=== PATIENT | male | born 1955 | race Caucasian/White ===

== ENCOUNTER 2017-04-30 14:17 | Emergency (ER) | payer SELFPAY ==
[~2017-04-30] VITALS: Ht 182.9 cm; Wt 90.0 kg
[2017-04-30 14:18] VITALS: BP 142/90; PULSE 106; RESP 20; TEMP 98.1; O2SAT 98
--- NOTE | 2017-04-30 14:25 | PD ---
HPI . Diverticulitis Chief Complaint: GI Complaint Time Seen by Provider: 14:25 Travel History International Travel<30 days: No Contact w/Intl Traveler<30days: No Traveled to known affect area: No History of Present Illness HPI 62-year-old male with hx of HTN and diverticulosis here with complaints of diverticulitis flare. Patient tells me that he was seen at [facility] approximately 8 days ago and told that he had diverticulitis and would require admission, however due to work commitments he was unable to stay. He was discharged home with oral Cipro and Flagyl and tells me he's been taking it ever since, but that he doesn't seem to be getting significantly better. He says that he may have had a little bit of relief, however 4 days ago he decided to start using a stool softener secondary constipation and his abdominal pain returned. He also tells me that he saw some blood when wiping, but admits to hemorrhoids. Today he is complaining of diffuse abdominal pain along the upper quadrant rated as 9/10. He denies any nausea, vomiting, diarrhea or constipation. He does not have a primary care provider or any healthcare provider at this time. [facility] Past Medical History Diverticulitis: Yes Social History Alcohol Use: Yes Tobacco Use: Yes Substance Use: No Allergies-Medications (Allergen,Severity, Reaction): Coded Allergies: No Known Allergies (Unverified , 04/30/17) Reported Meds & Prescriptions Reported Meds & Active Scripts Active Reported Lisinopril 40 Mg Tab 40 Mg PO DAILY Review of Systems General / Constitutional: No: Fever Eyes: No: Visual changes HENT: No: Headaches Cardiovascular: No: Chest Pain or Discomfort Respiratory: No: Shortness of Breath Gastrointestinal: Positive: Abdominal Pain Genitourinary: No: Dysuria Musculoskeletal: No: Pain Skin: No Rash Neurologic: No: Weakness Psychiatric: No: Depression Endocrine: No: Polydipsia Hematologic/Lymphatic: No: Easy Bruising Physical Exam Narrative GENERAL: AAO x 3, no acute distress, Well-nourished, well-developed patient. SKIN: Warm and dry. No visible rashes or bruising. HEAD: Normocephalic and atraumatic. EYES: No scleral icterus. No injection or drainage. EOM intact, PERRLA ENT: No nasal drainage noted. Mucous membranes pink. Airway patent. NECK: Supple, trachea midline. No JVD. CARDIOVASCULAR: Regular rate and rhythm without murmurs, gallops, or rubs. RESPIRATORY: Breath sounds equal bilaterally. No accessory muscle use. No rhonchi or rales. GASTROINTESTINAL: Abdomen soft, mild tenderness to deep palpation, no rebound or guarding, no McBurney's point tenderness or Braden's sign. Normoactive bowel sounds RECTAL: negative guaiac, palpable hemorrhoid internally, no visible bleeding EXTREMITIES: No cyanosis or edema. BACK: Nontender without obvious deformity. No CVA tenderness. NEURO: CN II-12 intact, chemical laboratory scientist strength normal b/l, UE and LE 5/5, no focal deficits PSYCH: AAO x 3, normal affect. Data Data Last Documented VS Vital Signs Date Time Temp Pulse Resp B/P Pulse Ox O2 Delivery O2 Flow Rate FiO2 04/30/17 17:52 91 18 134/85 99 04/30/17 14:18 98.1 Room Air Orders Complete Blood Count With Diff (04/30/17 14:33) Comprehensive Metabolic Panel (04/30/17 14:33) Lipase (04/30/17 14:33) Prothrombin Time / Inr (Pt) (04/30/17 14:33) Act Partial Throm Time (Ptt) (04/30/17 14:33) Ct Abd/Pel W Iv Contrast(Rout) (04/30/17 14:33) Iv Access Insert/Monitor (04/30/17 14:33) Ecg Monitoring (04/30/17 14:33) Oximetry (04/30/17 14:33) Sodium Chloride 0.9% Flush (Ns Flush) (04/30/17 14:45) Morphine Inj (Morphine Inj) (04/30/17 14:45) Hydromorphone (Dilaudid) (04/30/17 16:00) Iohexol 350 Inj (Omnipaque 350 Inj) (04/30/17 17:04) Labs Laboratory Tests Test 04/30/17 14:45 White Blood Count 9.6 TH/MM3 Red Blood Count 5.38 MIL/MM3 Hemoglobin 16.5 GM/DL Hematocrit 48.8 % Mean Corpuscular Volume 90.6 FL Mean Corpuscular Hemoglobin 30.8 PG Mean Corpuscular Hemoglobin 33.9 % Concent Red Cell Distribution Width 13.5 % Platelet Count 240 TH/MM3 Mean Platelet Volume 9.2 FL Neutrophils (%) (Auto) 70.8 % Lymphocytes (%) (Auto) 22.2 % Monocytes (%) (Auto) 5.9 % Eosinophils (%) (Auto) 0.7 % Basophils (%) (Auto) 0.4 % Neutrophils # (Auto) 6.8 TH/MM3 Lymphocytes # (Auto) 2.1 TH/MM3 Monocytes # (Auto) 0.6 TH/MM3 Eosinophils # (Auto) 0.1 TH/MM3 Basophils # (Auto) 0.0 TH/MM3 CBC Comment DIFF FINAL Differential Comment Prothrombin Time 11.3 SEC Prothromb Time International 1.0 RATIO Ratio Activated Partial 27.3 SEC Thromboplast Time Sodium Level 137 MEQ/L Potassium Level 4.2 MEQ/L Chloride Level 105 MEQ/L Carbon Dioxide Level 22.1 MEQ/L Anion Gap 10 MEQ/L Blood Urea Nitrogen 19 MG/DL Creatinine 1.53 MG/DL Estimat Glomerular Filtration 47 ML/MIN Rate Random Glucose 141 MG/DL Calcium Level 8.6 MG/DL Total Bilirubin 0.4 MG/DL Aspartate Amino Transf 28 U/L (AST/SGOT) Alanine Aminotransferase 39 U/L (ALT/SGPT) Alkaline Phosphatase 93 U/L Total Protein 6.8 GM/DL Albumin 3.7 GM/DL Lipase 380 U/L [facility] Medical Decision Making Medical Screen Exam Complete: Yes Emergency Medical Condition: Yes Medical Record Reviewed: Yes Differential Diagnosis Diverticulitis, constipation, GI bleed, cholecystitis, cholelithiasis, Narrative Course 62-year-old male with hypertension here with complaints of diverticulitis. Patient was seen at another hospital and told he had diverticulitis and has been using outpatient therapy with Cipro and Flagyl. IV access was obtained, labs and imaging have been ordered. He reports 9/10 pain, therefore provided him with some morphine here in the emergency department. bedside guaiac is negative. There are a few palpable hemorrhoids. Patient was given dilaudid for pain control. All results reviewed and WNL, except for elevated creatinine, baseline is unknown. I discussed with the patient. He was understanding. I recommend outpatient f/u. Last Impressions Abdomen/Pelvis CT 04/30/17 5274 Signed Impressions: Service Date/Time: Sunday, April 30, 2017 16:58 - CONCLUSION: 1. 1.9 cm benign left renal cyst. 2. Scattered diverticulosis of the descending and sigmoid colon without inflammatory changes. 3. Status post cholecystectomy. Kip Mcnally MD Laboratory Tests Test 04/30/17 14:45 White Blood Count 9.6 TH/MM3 Red Blood Count 5.38 MIL/MM3 Hemoglobin 16.5 GM/DL Hematocrit 48.8 % Mean Corpuscular Volume 90.6 FL Mean Corpuscular Hemoglobin 30.8 PG Mean Corpuscular Hemoglobin 33.9 % Concent Red Cell Distribution Width 13.5 % Platelet Count 240 TH/MM3 Mean Platelet Volume 9.2 FL Neutrophils (%) (Auto) 70.8 % Lymphocytes (%) (Auto) 22.2 % Monocytes (%) (Auto) 5.9 % Eosinophils (%) (Auto) 0.7 % Basophils (%) (Auto) 0.4 % Neutrophils # (Auto) 6.8 TH/MM3 Lymphocytes # (Auto) 2.1 TH/MM3 Monocytes # (Auto) 0.6 TH/MM3 Eosinophils # (Auto) 0.1 TH/MM3 Basophils # (Auto) 0.0 TH/MM3 CBC Comment DIFF FINAL Differential Comment Prothrombin Time 11.3 SEC Prothromb Time International 1.0 RATIO Ratio Activated Partial 27.3 SEC Thromboplast Time Sodium Level 137 MEQ/L Potassium Level 4.2 MEQ/L Chloride Level 105 MEQ/L Carbon Dioxide Level 22.1 MEQ/L Anion Gap 10 MEQ/L Blood Urea Nitrogen 19 MG/DL Creatinine 1.53 MG/DL Estimat Glomerular Filtration 47 ML/MIN Rate Random Glucose 141 MG/DL Calcium Level 8.6 MG/DL Total Bilirubin 0.4 MG/DL Aspartate Amino Transf 28 U/L (AST/SGOT) Alanine Aminotransferase 39 U/L (ALT/SGPT) Alkaline Phosphatase 93 U/L Total Protein 6.8 GM/DL Albumin 3.7 GM/DL Lipase 380 U/L Case was discussed with my attending Dr. Zuniga. We recommend outpatient f/u and continuation of current antibiotics. I have discussed all findings with the patient and he was understanding. Patient verbalized understanding of instructions, questions were answered, and thanked me for their care. I advised them if their condition worsens, please return to the nearest emergency room for further care. Diagnosis Primary Impression: Diverticulosis Qualified Code: K57.90 - Diverticulosis of intestine without bleeding, unspecified intestinal tract location Additional Impression: Constipation Qualified Code: K59.00 - Constipation, unspecified constipation type Patient Instructions: General Instructions Additional Instructions: Please establish with a primary care doctor locally. Return to emergency department for any worsening of your condition. Complete your antibiotics. Med/Other Pt SpecificInfo: No Change to Meds Disposition: 01 DISCHARGE HOME Condition: Stable Shira Bhatia Apr 30, 2017 14:25
[2017-04-30] MEDS ORDERED: LISI40TA PO (14:26)
[2017-04-30 14:40] VITALS: O2SAT 98
[2017-04-30] MEDS ORDERED: MORPHINE SULFATE 4 MG/ML INJ IV PUSH ONE (14:45)
[2017-04-30] MEDS ORDERED: SODIUM CHLORIDE 0.9% FLUSH 10 ML FLUSH IV FLUSH PRN (14:45)
[2017-04-30 15:42] LABS: AUTOMATED NEUTROPHIL # 6.8 TH/MM3 (1.8-7.7); BASOPHIL % 0.4 % (0.0-2.0); EOSINOPHIL # 0.1 TH/MM3 (0-0.4); EOSINOPHIL % 0.7 % (0.0-4.0); HEMATOCRIT 48.8 % (39.0-51.0); HEMO FLAGS DIFF FINAL; LYMPH % 22.2 % (9.0-44.0); LYMPHOCYTE # 2.1 TH/MM3 (1.0-4.8); MEAN CELL VOLUME 90.6 FL (80.0-100.0); MEAN CORPUSCULAR HEMOGLOBIN 30.8 PG (27.0-34.0); MEAN CORPUSCULAR HGB CONC 33.9 % (32.0-36.0); MONO % 5.9 % (0.0-8.0); NEUT % 70.8 % (16.0-70.0); PLATELET COUNT 240 TH/MM3 (150-450); RED BLOOD COUNT 5.38 MIL/MM3 (4.50-5.90); RED CELL DISTRIBUTION WIDTH 13.5 % (11.6-17.2); WHITE BLOOD COUNT 9.6 TH/MM3 (4.0-11.0)
[2017-04-30 15:50] LABS: APTT (PATIENT) 27.3 SEC (24.3-30.1); PROTHROMBIN TIME - PATIENT 11.3 SEC (9.8-11.6)
[2017-04-30] MEDS ORDERED: HYDROmorphone HCL 2 MG TAB PO ONE (16:00)
[2017-04-30 16:17] LABS: ALT (GPT) 39 U/L (12-78)
[2017-04-30 16:19] LABS: ALKALINE PHOSPHATASE 93 U/L (45-117); TOTAL BILIRUBIN ADULT 0.4 MG/DL (0.2-1.0)
[2017-04-30 16:22] LABS: ANION GAP 10 MEQ/L (5-15); AST (GOT) 28 U/L (15-37); BICARBONATE 22.1 MEQ/L (21.0-32.0); BLOOD UREA NITROGEN 19 MG/DL (7-18); CHLORIDE 105 MEQ/L (98-107); GLOMERULAR FILTRATION RATE 47 ML/MIN (>89); POTASSIUM 4.2 MEQ/L (3.5-5.1); SODIUM (NA) 137 MEQ/L (136-145)
[2017-04-30] MEDS ORDERED: IOHEXOL 350 MG/ML 10 ML VIAL (for RAD DIAG) IV ONE (17:04)
--- NOTE | 2017-04-30 17:16 | RADRPT ---
EXAM DATE/TIME: 04/30/2017 16:58 [facility] COMPARISON: No previous studies available for comparison. INDICATIONS : Patient complains of abdominal, history of diverticulitis. IV CONTRAST: 100 cc Omnipaque 350 (iohexol) IV ORAL CONTRAST: No oral contrast ingested. RADIATION DOSE: 9.96 CTDIvol (mGy) MEDICAL HISTORY : Cardiovascular disease. Hypertension. SURGICAL HISTORY : Appendectomy. Cholecystectomy.Pelvic fracture. ENCOUNTER: Initial ACUITY: 1 day PAIN SCALE: 6/10 LOCATION: Bilateral lower quadrant TECHNIQUE: Volumetric scanning of the abdomen and pelvis was performed. Using automated exposure control and ad justment of the mA and/or kV according to patient size, radiation dose was kept as low as reasonably achievable to obtain optimal diagnostic quality images. DICOM format image data is available electro nically for review and comparison. FINDINGS: LOWER LUNGS: The visualized lower lungs are clear. LIVER: Homogeneous density without lesion. There is no dilation of the biliary tree. No gallbladder, surgi jazzy removed. Some mild elevation of the common bile duct most likely from reservoir effect. SPLEEN: Normal size without lesion. PANCREAS: Within normal limits. KIDNEYS: Normal in size and shape. There is no mass, stone or hydronephrosis. 1.9 cm benign-appearing left re nal cyst. ADRENAL GLANDS: Within normal limits. VASCULAR: There is no aortic aneurysm. BOWEL/MESENTERY: The stomach, small bowel, and colon demonstrate no acute abnormality. There is no free intraperitone al air or fluid. Scattered diverticulosis of the descending and sigmoid colon without inflammatory ch anges. ABDOMINAL WALL: Within normal limits. RETROPERITONEUM: There is no lymphadenopathy. BLADDER: No wall thickening or mass. REPRODUCTIVE: Within normal limits. INGUINAL: There is no lymphadenopathy or hernia. MUSCULOSKELETAL: Within normal limits for patient age. Evidence of previous internal fixation involving the left side of the pelvis. CONCLUSION: 1. 1.9 cm benign left renal cyst. 2. Scattered diverticulosis of the descending and sigmoid colon without inflammatory changes. 3. Status post cholecystectomy. Kip Mcnally MD on April 30, 2017 at 17:09 Board Certified Radiologist. This report was verified electronically.
[2017-04-30 17:52] VITALS: BP 134/85
== END 2017-04-30 17:52 | disposition home or self-care (01) ==
LOC: NEPE 14:17
DX: K57.90 Diverticulosis of intestine, part unspecified, without perforation or abscess without bleeding (principal); K59.00 Constipation, unspecified; N28.1 Cyst of kidney, acquired; I10 Essential (primary) hypertension; Z79.899 Other long term (current) drug therapy; Z72.0 Tobacco use
CPT/HCPCS: 74177; 80053; 83690; 85025; 85610; 85730; 96374; 99285; J2270; Q9967

== ENCOUNTER 2018-01-08 09:26 | Emergency (ER) | payer SELFPAY ==
[~2018-01-08] VITALS: Ht 182.9 cm; Wt 81.0 kg
[~2018-01-08 09:26] MED LIST: AMLO10 PO; HYDR-3799 PO; IBUP1TAB5 PO; LEVA750T9 PO; LISI40TA PO; METR-1 PO; TRAZ50TA12 PO
[2018-01-08 09:28] VITALS: BP 140/85; PULSE 108; RESP 20; TEMP 98.2; O2SAT 100
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
[2018-01-08] MEDS: CLINDAMYCIN PHOS 600 MG/4 ML VIAL IM ONE (10:05)
--- NOTE | 2018-01-08 10:08 | RADRPT ---
EXAM DATE/TIME: 01/08/2018 09:49 [facility] COMPARISON: CHEST SINGLE AP, December 04, 2017, 20:09. INDICATIONS : Cough for the past few days. MEDICAL HISTORY : Cardiovascular disease. SURGICAL HISTORY : Appendectomy. Cholecystectomy.Pelvic ORIF ENCOUNTER: Initial ACUITY: 3 days PAIN SCORE: 0/10 LOCATION: Bilateral chest FINDINGS: A single view of the chest demonstrates the lungs to be symmetrically hyperinflated without evidence of mass, infiltrate or effusion. The cardiomediastinal contours are unremarkable. Osseous structure s are intact. CONCLUSION: Radiographic findings suggestive of COPD or emphysema. Lung exam improved from prior surgery 2018 exam. No acute abnormality seen. Earline Dueñas MD on January 08, 2018 at 10:05 Board Certified Radiologist. This report was verified electronically.
[2018-01-08] MEDS ORDERED: CEPH-460 PO (10:42)
[2018-01-08] MEDS ORDERED: BACT800T5 PO (10:42)
[2018-01-08] MEDS ORDERED: AMLO10 PO (10:42)
[2018-01-08] MEDS ORDERED: LISI40TA PO (10:42)
[2018-01-08] MEDS: IBUPROFEN 800 MG TAB PO ONE (11:01)
== END 2018-01-08 11:05 | disposition home or self-care (01) ==
LOC: NEPD 09:26
DX: L03.115 Cellulitis of right lower limb (principal); J06.9 Acute upper respiratory infection, unspecified; I10 Essential (primary) hypertension; K21.9 Gastro-esophageal reflux disease without esophagitis; F17.200 Nicotine dependence, unspecified, uncomplicated; Z86.73 Personal history of transient ischemic attack (TIA), and cerebral infarction without residual deficits
CPT/HCPCS: 71045; 87804; 96372